=== PATIENT | female | born 1990 | race American Indian/Alaskan Native ===

== ENCOUNTER 2016-09-18 15:29 | Emergency (ER) | payer MEDICAID ==
--- NOTE | 2016-09-18 16:46 | Emergency Department Report ---
Entered by CHOCO BHAKTA, acting as scribe for ELVIRA YU NP. Chief Complaint: OB/Uterine Contractions Stated Complaint: DEHYDRATION Time Seen by Provider: 09/18/16 16:33 - HPI History of Present Illness: 8 weeks pt is non-toxic, non ill appearing, in no acute distress with c/o n/v and unable to hold anything down. Pt states that she has lost about 20lbs since 08/28/16. Reports intermittent abdominal pain. Denies vaginal bleeding Denies chest pain and SOB - ROS Review of Systems: Report N/V and intermittent abdominal pain Denies vaginal bleeding Denies chest pain and SOB - Exam Vital Signs: Vital Signs 09/18/16 16:23 Temperature 98.7 F Pulse Rate 82 Respiratory 18 Rate Blood Pressure 152/97 O2 Sat by Pulse 100 Oximetry Physical Exam: Constitutional: Non toxic appearing, NAD. Abdomen: Abdomen is non-distended, soft with no tenderness to palpation in all quadrants. No abdominal bruit. No epigastric pain. Negative [place] Tenderness. Negative [place] sign. MSE screening note: Focused history and physical exam performed. Due to findings the following was ordered: CBC, BMP, test, UA, and US was ordered on patient. ED Disposition for MSE Condition: Stable This documentation as recorded by the scribe,CHOCO BHAKTA,accurately reflects the service I personally performed and the decisions made by GIGI hernandez MARTIN, NURIS.
[2016-09-18 17:03] LABS: Basophils % (Auto) 0.7 % (0.0-1.8); Eosinophils % (Auto) 0.8 % (0.0-4.3); Hematocrit 44.2 % (30.3-42.9); Hemoglobin 14.3 gm/dl (10.1-14.3); Mean Corpuscular HGB Conc 32 % (30-34); Mean Corpuscular Hemoglobin 27 pg (28-32); Mean Corpuscular Volume 84 fl (79-97); Platelet Count 306 K/mm3 (140-440); Red Blood Count 5.29 M/mm3 (3.65-5.03); Red Cell Distribution Width 15.1 % (13.2-15.2)
[2016-09-18 17:13] LABS: Anion Gap 20 mmol/L; Blood Urea Nitrogen 17 mg/dL (7-17); Calcium 9.9 mg/dL (8.4-10.2); Carbon Dioxide 22 mmol/L (22-30); Chloride 97.2 mmol/L (98-107); Glucose 87 mg/dL (65-100); Potassium 3.6 mmol/L (3.6-5.0); Sodium 136 mmol/L (137-145)
--- NOTE | 2016-09-18 19:44 | Ultrasound Report ---
FINAL REPORT PROCEDURE: US OB TRANSVAGINAL TECHNIQUE: Real-time transvaginal sonography of the uterus, placenta, amniotic fluid, adnexa, and fetus was performed with image documentation. Measurements were obtained to determine age/size. M-mode Doppler was used to document heartbeat. CPT 89868 HISTORY: cramping COMPARISON: Transvaginal OB ultrasound also performed today. FINDINGS: The report for this exam was generated using images from both the transabdominal and a transvaginal OB ultrasound both of which were performed today. There is a single living intrauterine gestation visualized with crown-rump length measurement of 2.5 centimeters corresponding to an age of 9 weeks 2 days. Fetus currently too small to assess anatomy. No gross abnormality is visualized. Yolk sac is visualized. There is nonspecific chorion amniotic separation. No evidence of subchorionic hemorrhage. There is a small nodular density projecting into the endometrial canal from the posterior myometrium measuring approximately 7.7 millimeters x 2.8 centimeters. This may represent a contraction or may also represent a sub mucosal fibroid. Gestational sac is otherwise unremarkable. Uterus is otherwise unremarkable. heart rate of 171 beats per minute is detected. The right ovary measures 4.4 x 2.4 x 3.7 centimeter. Within the right ovary there is a complex cystic nodule measuring 2.7 centimeters greatest diameter with some internal echoes. This may represent hemorrhagic corpus luteum cyst of . Left ovary is unremarkable measuring 2.6 x 1.4 x 3.1 centimeters. IMPRESSION: Single living intrauterine gestation visualized. By crown-rump length measurement estimated age is 9 weeks 2 days[address] the EDC at 04/21/2017 plus or minus 0.5 weeks. There is nonspecific chorion amniotic separation. No evidence of subchorionic hemorrhage. Graph small nodular density projects into the endometrial canal as described. This may represent a submucosal fibroid versus a persistent small contraction. Gestational sac is otherwise unremarkable. Small complex cystic lesion right adnexa suggesting hemorrhagic corpus luteum cyst of .
--- NOTE | 2016-09-18 19:46 | Ultrasound Report ---
FINAL REPORT PROCEDURE: US OB \T\lt; = 14 WEEKS FETUS TECHNIQUE: Real-time transabdominal sonography of the uterus, placenta, amniotic fluid, adnexa, and fetus was performed with image documentation. Measurements were obtained to determine age/size. M-mode Doppler was used to document heartbeat. CPT 52522 HISTORY: cramping COMPARISON: Transvaginal OB ultrasound also performed today. FINDINGS: The report for this exam was generated using images from both the transabdominal and a transvaginal OB ultrasound both of which were performed today. There is a single living intrauterine gestation visualized with crown-rump length measurement of 2.5 centimeters corresponding to an age of 9 weeks 2 days. Fetus currently too small to assess anatomy. No gross abnormality is visualized. Yolk sac is visualized. There is nonspecific chorion amniotic separation. No evidence of subchorionic hemorrhage. There is a small nodular density projecting into the endometrial canal from the posterior myometrium measuring approximately 7.7 millimeters x 2.8 centimeters. This may represent a contraction or may also represent a sub mucosal fibroid. Gestational sac is otherwise unremarkable. Uterus is otherwise unremarkable. heart rate of 171 beats per minute is detected. The right ovary measures 4.4 x 2.4 x 3.7 centimeter. Within the right ovary there is a complex cystic nodule measuring 2.7 centimeters greatest diameter with some internal echoes. This may represent hemorrhagic corpus luteum cyst of . Left ovary is unremarkable measuring 2.6 x 1.4 x 3.1 centimeters. IMPRESSION: IMPRESSION: Single living intrauterine gestation visualized. By crown-rump length measurement estimated age is 9 weeks 2 days. This [address] the EDC at 04/21/2017 plus or minus 0.5 weeks. Consider follow-up Ob ultrasound at 18-20 weeks to evaluate anatomy. There is nonspecific chorion amniotic separation. No evidence of subchorionic hemorrhage. Small nodular density projects into the endometrial canal as described. This may represent a submucosal fibroid versus a persistent small contraction. Gestational sac is otherwise unremarkable. Small complex cystic lesion right adnexa suggesting hemorrhagic corpus luteum cyst of . IMPRESSION:
[2016-09-19] MEDS ORDERED: ZOFRAN IV ONE (02:37)
[2016-09-19] MEDS ORDERED: D5NS 1,000 ML IV SCH ×2 (03:00)
[2016-09-19 03:59] LABS: Bilirubin,Urine NEG (Negative); Blood,Urine NEG (Negative); Ketones,Urine 80 mg/dL (Negative); Leukocyte Esterase,Urine SM (Negative); Mucus,Urine 3+ /HPF; Nitrite,Urine NEG (Negative); Urobilinogen,Urine < 2.0 mg/dL (<2.0)
--- NOTE | 2016-09-19 05:09 | Emergency Department Report ---
ED HPI - General Chief complaint: OB/Uterine Contractions Stated complaint: DEHYDRATION Time Seen by Provider: 09/19/16 02:36 Source: patient Mode of arrival: Ambulatory Limitations: No Limitations - History of Present Illness Initial comments: 26-year-old female approximately 8 weeks presents to the hospital complaining of persistent nausea, vomiting, and by mouth intolerance or in her . She states she lost 20 pounds since August 28 and has not eaten in 3 days. Patient did have some mild intermittent suprapubic cramping after arrival to the ED but denies vaginal bleeding, dysuria, fever, or diarrhea. Patient has received care with [facility]. This is her third and she has 2 living children. She has not experienced this level of hyperemesis in the past.. - Related Data Previous Rx's Medication Instructions Recorded Last Taken Type Ondansetron [Zofran Odt] 4 mg PO Q8HR PRN #20 tab.rapdis 09/19/16 Unknown Rx Allergies Allergy/AdvReac Type Severity Reaction Status Date / Time banana [Banana] AdvReac Hives Verified 09/19/16 03:55 celery [Celery] AdvReac Hives Verified 09/19/16 03:55 cocoa [[place]] AdvReac Hives Verified 09/19/16 03:55 egg yolk [Egg Yolk] AdvReac Hives Verified 09/19/16 03:55 milk AdvReac Hives Verified 09/19/16 03:55 peanut AdvReac Hives Verified 09/19/16 03:55 shellfish derived AdvReac Hives Verified 09/19/16 03:55 strawberry [[place]] AdvReac Hives Verified 09/19/16 03:55 tomato [Tomato] AdvReac Hives Verified 09/19/16 03:55 MELON AdvReac Hives Uncoded 02/27/13 03:42 OATS AdvReac Hives Uncoded 02/27/13 03:42 ORANGES AdvReac Hives Uncoded 02/27/13 03:42 PECANS AdvReac Hives Uncoded 02/27/13 03:42 ED Review of Systems ROS: Stated complaint: DEHYDRATION Other details as noted in HPI Comment: All other systems reviewed and negative Other: Constitutional: No fevers chills Eyes: No eye pain visual changes ENT: No ear pain or throat pain Neck: Denies pain Respiratory: Denies cough wheezing shortness of breath Cardiovascular: Denies chest pain, palpitations, syncope GI: As per HPI : Denies dysuria Musculoskeletal: Denies back pain, joint swelling Skin: Denies rash, lesions, erythema Neurologic: Denies headache, numbness, weakness Psychiatric: Denies suicidal ideation, hallucinations ED Past Medical Hx - Past Medical History Previous Medical History?: No Hx Hypertension: No Hx Diabetes: No Hx Deep Vein Thrombosis: No Hx Renal Disease: No Hx Sickle Cell Disease: No Hx Seizures: No Hx Asthma: No Hx HIV: No - Surgical History Past Surgical History?: No - Social History Smoking Status: Never Smoker Substance Use Type: None - Medications Home Medications: Home Medications Medication Instructions Recorded Confirmed Last Taken Type Ondansetron [Zofran Odt] 4 mg PO Q8HR PRN #20 tab.rapdis 09/19/16 Unknown Rx ED Physical Exam - General Limitations: No Limitations - Other Other exam information: General: No limitations, patient is alert in no acute distress Head exam: Atraumatic, normocephalic Eyes exam: Normal appearance ENT: I mucous membrane Neck exam: Normal inspection, full range of motion, no meningismus nontender Respiratory exam: Clear to auscultation bilateral, no wheezes, rales, crackles Cardiovascular: Normal rate and rhythm, normal heart sounds Abdomen: Soft, nondistended, nontender abdomen, with normal bowel sounds, no rebound, or guarding Extremity: Full range of motion normal inspection no deformity Back: Normal Inspection, full range of motion, no tenderness Neurologic: Alert, oriented x3, cranial nerves intact, no motor or sensory deficit Psychiatric: normal affect, normal mood Skin: Warm, dry, intact ED Course Vital Signs 09/18/16 09/19/16 09/19/16 16:23 00:07 03:00 Temperature 98.7 F 99.1 F Pulse Rate 82 75 Respiratory 18 18 Rate Blood Pressure 152/97 128/89 Blood Pressure [Left] O2 Sat by Pulse 100 100 100 Oximetry 09/19/16 09/19/16 09/19/16 03:46 03:58 04:00 Temperature 98.7 F Pulse Rate 82 Respiratory 19 18 Rate Blood Pressure 101/49 Blood Pressure 129/89 [Left] O2 Sat by Pulse 100 100 Oximetry 09/19/16 09/19/16 05:00 06:00 Temperature Pulse Rate Respiratory Rate Blood Pressure 88/50 98/62 Blood Pressure [Left] O2 Sat by Pulse 100 100 Oximetry - Reevaluation(s) Reevaluation #1: 09/19/16 05:09 -Received Zofran. 2 L of D5 NS in progress. Patient feeling better. By mouth challenge ordered ED Medical Decision Making - Lab Data Result diagrams: 09/18/16 16:42 09/18/16 16:42 Lab Results 09/18/16 09/18/16 09/18/16 Range/Units 16:42 16:42 16:42 WBC 6.0 (4.5-11.0) K/mm3 RBC 5.29 H (3.65-5.03) M/mm3 Hgb 14.3 (10.1-14.3) gm/dl Hct 44.2 H (30.3-42.9) % MCV 84 (79-97) fl MCH 27 L (28-32) pg MCHC 32 (30-34) % RDW 15.1 (13.2-15.2) % Plt Count 306 (140-440) K/mm3 Lymph % (Auto) 25.8 (13.4-35.0) % [place] % (Auto) 7.9 H (0.0-7.3) % Eos % (Auto) 0.8 (0.0-4.3) % Baso % (Auto) 0.7 (0.0-1.8) % Lymph # 1.5 (1.2-5.4) K/mm3 [place] # 0.5 (0.0-0.8) K/mm3 Eos # 0.0 (0.0-0.4) K/mm3 Baso # 0.0 (0.0-0.1) K/mm3 Seg Neutrophils % 64.8 (40.0-70.0) % Seg Neutrophils # 3.9 (1.8-7.7) K/mm3 Sodium 136 L (137-145) mmol/L Potassium 3.6 (3.6-5.0) mmol/L Chloride 97.2 L (98-107) mmol/L Carbon Dioxide 22 (22-30) mmol/L Anion Gap 20 mmol/L BUN 17 (7-17) mg/dL Creatinine 0.5 L (0.7-1.2) mg/dL Estimated GFR > 60 ml/min BUN/Creatinine Ratio 34.00 % Glucose 87 (65-100) mg/dL Calcium 9.9 (8.4-10.2) mg/dL HCG, Quant [id number] H (0-4) mIU/mL Urine Color (Yellow) Urine Turbidity (Clear) Urine pH (5.0-7.0) Ur Specific [place] (1.003-1.030) Urine Protein (Negative) mg/dL Urine Glucose (UA) (Negative) mg/dL Urine Ketones (Negative) mg/dL Urine Blood (Negative) Urine Nitrite (Negative) Urine Bilirubin (Negative) Urine Urobilinogen (<2.0) mg/dL Ur Leukocyte Esterase (Negative) Urine WBC (Auto) (0.0-6.0) /HPF Urine RBC (Auto) (0.0-6.0) /HPF U Epithel Cells (Auto) (0-13.0) /HPF Urine Mucus /HPF // Range/Units 03:45 WBC (4.5-11.0) K/mm3 RBC (3.65-5.03) M/mm3 Hgb (10.1-14.3) gm/dl Hct (30.3-42.9) % MCV (79-97) fl MCH (28-32) pg MCHC (30-34) % RDW (13.2-15.2) % Plt Count (140-440) K/mm3 Lymph % (Auto) (13.4-35.0) % [place] % (Auto) (0.0-7.3) % Eos % (Auto) (0.0-4.3) % Baso % (Auto) (0.0-1.8) % Lymph # (1.2-5.4) K/mm3 [place] # (0.0-0.8) K/mm3 Eos # (0.0-0.4) K/mm3 Baso # (0.0-0.1) K/mm3 Seg Neutrophils % (40.0-70.0) % Seg Neutrophils # (1.8-7.7) K/mm3 Sodium (137-145) mmol/L Potassium (3.6-5.0) mmol/L Chloride (98-107) mmol/L Carbon Dioxide (22-30) mmol/L Anion Gap mmol/L BUN (7-17) mg/dL Creatinine (0.7-1.2) mg/dL Estimated GFR ml/min BUN/Creatinine Ratio % Glucose (65-100) mg/dL Calcium (8.4-10.2) mg/dL HCG, Quant (0-4) mIU/mL Urine Color Yellow (Yellow) Urine Turbidity Clear (Clear) Urine pH 6.0 (5.0-7.0) Ur Specific [place] 1.030 (1.003-1.030) Urine Protein 30 mg/dl (Negative) mg/dL Urine Glucose (UA) 50 (Negative) mg/dL Urine Ketones 80 (Negative) mg/dL Urine Blood Neg (Negative) Urine Nitrite Neg (Negative) Urine Bilirubin Neg (Negative) Urine Urobilinogen < 2.0 (<2.0) mg/dL Ur Leukocyte Esterase Sm (Negative) Urine WBC (Auto) 4.0 (0.0-6.0) /HPF Urine RBC (Auto) 4.0 (0.0-6.0) /HPF U Epithel Cells (Auto) 2.0 (0-13.0) /HPF Urine Mucus 3+ /HPF - Radiology Data Radiology results: report reviewed Transvaginal/pelvic ultrasound: 9 week in 2 days IUP. heart 171. Nonspecific chorionic amniotic separation. Small complex cystic lesion right adnexa suggested hemorrhagic corpus emesis of - Medical Decision Making Symptoms improving ED treatment. Patient is sent home with medication to help with nausea and encourage by mouth intake. Outpatient follow-up with [facility]LE[facility] CL[facility] will be encouraged - Differential Diagnosis dehydration, UTI, electrolyte abnormalities, hyperemesis Critical Care Time: No Critical care attestation.: If time is entered above; I have spent that time in minutes in the direct care of this critically ill patient, excluding procedure time. ED Disposition Clinical Impression: Hyperemesis, 9 weeks gestation of Disposition: DC-01 TO HOME OR SELFCARE Is pt being admited?: No Does the pt Need Aspirin: No Condition: Stable Instructions: Hyperemesis Gravidarum (ED) Additional Instructions: Take the medications for nausea vomiting. Follow up closely with COLLECTION CLERK doctor. Return if symptoms worsen. Prescriptions: Ondansetron [Zofran Odt] 4 mg PO Q8HR PRN #20 tab.rapdis PRN Reason: Nausea And Vomiting Referrals: [facility] [Provider Group] - 2-3 Days Time of Disposition: 06:50
[2016-09-19 07:24] VITALS: BP 105/70
== END 2016-09-19 07:18 | disposition home or self-care (01) ==
LOC: ED 15:29
DX: O21.0 Mild hyperemesis gravidarum (principal); Z3A.09 9 weeks gestation of pregnancy; Z91.013 Allergy to seafood; Z91.010 Allergy to peanuts; Z91.048 Other nonmedicinal substance allergy status; Z91.018 Allergy to other foods; Z88.8 Allergy status to other drugs, medicaments and biological substances
CPT/HCPCS: 36415; 76801; 76817; 80048; 81001; 84702; 85025; 96361; 96374; 99284; J2405; J7042

== ENCOUNTER 2017-04-01 23:44 | Outpatient (CLI) | payer MEDICAID ==
[2017-04-02] MEDS ORDERED: LACTATED RINGERS 1,000 ML IV ONE (00:12)
[2017-04-02 01:05] LABS: Bilirubin,Urine NEG (Negative); Blood,Urine NEG (Negative); Color,Urine Yellow (Yellow); Mucus,Urine FEW /HPF; Nitrite,Urine NEG (Negative)
[2017-04-02 01:17] VITALS: BP 122/64
== END 2017-04-02 01:28 | disposition home or self-care (01) ==
LOC: TRG 23:44
PROVIDERS: ATTEND Obstetrics & Gynecology
DX: O47.03 False labor before 37 completed weeks of gestation, third trimester (principal); Z87.891 Personal history of nicotine dependence; Z3A.36 36 weeks gestation of pregnancy
CPT/HCPCS: 59025; 81001

== ENCOUNTER 2019-02-26 16:24 | Outpatient (CLI) | payer MEDICAID ==
[2019-02-26] MEDS ORDERED: D5W/LACTATED RINGERS 1,000 ML IV SCH (17:00)
[2019-02-26 17:26] LABS: Bilirubin,Urine NEG (Negative); Blood,Urine NEG (Negative); Color,Urine Amber (Yellow); Mucus,Urine FEW /HPF; Urobilinogen,Urine < 2.0 mg/dL (<2.0)
[2019-02-26 18:38] VITALS: BP 141/66
== END 2019-02-26 18:50 | disposition home or self-care (01) ==
LOC: TRG 16:24
PROVIDERS: ATTEND Obstetrics & Gynecology
DX: O99.282 Endocrine, nutritional and metabolic diseases complicating pregnancy, second trimester (principal); E86.0 Dehydration; O47.02 False labor before 37 completed weeks of gestation, second trimester; Z3A.27 27 weeks gestation of pregnancy
CPT/HCPCS: 81001; 96360; 96361; J7121

== ENCOUNTER 2019-05-19 18:31 | Inpatient (IN) | payer MEDICAID ==
[2019-05-19] MEDS ORDERED: BUTORPHANOL 2 MG/1 ML INJ IV PRN (19:09)
[2019-05-19] MEDS ORDERED: LIDOCAINE (2%) 20 MG/1 ML VIAL 20 ML MDV INFILTRATI ONE (19:09)
[2019-05-19] MEDS ORDERED: TERBUTALINE 1 MG/1 ML INJ SUB-Q PRN (19:09)
[2019-05-19] MEDS ORDERED: MINERAL OIL 30 ML ORAL LIQD PO PRN (19:09)
[2019-05-19] MEDS ORDERED: ePHEDrine SULFATE 50 MG/1 ML INJ IV PRN (19:09)
[2019-05-19] MEDS ORDERED: TERBUTALINE 1 MG/1 ML INJ IVP PRN (19:09)
[2019-05-19] MEDS ORDERED: NALOXONE 0.4 MG/1 ML INJ IV PRN (19:09)
[2019-05-19] MEDS: ONDANSETRON 4 MG/2 ML INJ IV PRN (19:56)
[2019-05-19] MEDS: LACTATED RINGERS 1,000 ML IV SCH (19:56)
[2019-05-19] MEDS ORDERED: OXYTOCIN 20 UNIT/1000ML DRIP 20 UNITS/1,000 ML BAG IV SCH (20:00)
[2019-05-19] MEDS ORDERED: PANTOPRAZOLE 40 MG INJ IV SCH (20:00)
[2019-05-19] MEDS ORDERED: OXYTOCIN DRIP 30 UNITS/500 ML BAG IV SCH (20:00)
[2019-05-19] MEDS ORDERED: AMPICILLIN/NS 2 GM/100 ML 2 GM/100 ML BAG IV ONE (20:00)
[2019-05-19 20:27] LABS: Hematocrit 38.7 % (30.3-42.9); Hemoglobin 12.6 gm/dl (10.1-14.3); Mean Corpuscular HGB Conc 33 % (30-34); Mean Corpuscular Volume 87 fl (79-97); Platelet Count 236 K/mm3 (140-440); Red Blood Count 4.45 M/mm3 (3.65-5.03); Red Cell Distribution Width 16.2 % (13.2-15.2)
[2019-05-19 20:48] LABS: Alanine Aminotransferase 10 units/L (7-56); Uric Acid 5.2 mg/dL (3.5-7.6)
[2019-05-19] MEDS ORDERED: AZITHROMYCIN 250 MG TAB PO ONE (21:29)
[2019-05-19 21:35] LABS: Bacteria,Urine 1+ /HPF (Negative); Bilirubin,Urine NEG (Negative); Blood,Urine NEG (Negative); Color,Urine Amber (Yellow); Mucus,Urine 3+ /HPF; Urobilinogen,Urine < 2.0 mg/dL (<2.0)
[2019-05-19] MEDS ORDERED: LIDOCAINE-MPF (1%) 10 MG/1 ML VIAL 5 ML INFILTRATI ONE (22:00)
[2019-05-19] MEDS: AMPICILLIN/NS 1 GM/50 ML 1 GM/50 ML BAG IV SCH (23:55)
[2019-05-20] MEDS ORDERED: OXYTOCIN DRIP 30 UNITS/500 ML BAG IV SCH (01:00)
--- NOTE | 2019-05-20 01:54 | History and Physical Report ---
History of Present Illness Date of examination: 05/20/19 Date of admission: 05/19/19 18:31 Chief complaint: sent from [facility] for induction of labor History of present illness: Pt is a 28 year old -[place]inese female MICHELINE 05/27/19 at 39w0d presents from [facility] clinic for induction secondary to non-reassuring status due to variable decelerations on NST in office per Dr Dotson with [facility]. She reports irregular contractions and denies vaginal bleeding or leakage of fluid. She has had care at [facility] since 12 weeks complicated by AFP positive for trisomy 21 but low risk NIPT, GERD on Lansoprazole with an baggageman following, severe atopic dermatitis s/p baggageman referral and left hydronephrosis and multicystic left kidney being followed by [facility]. She is GBS positive. Past History Past Medical History: GERD, other (atopic dermatitis, multiple food allergies, depression ) Past Surgical History: no surgical history Family/Genetic History: diabetes, heart disease Social history: no significant social history - Obstetrical History Expected Date of Delivery: 05/27/19 Actual Gestation: 39 Week(s) 0 Day(s) : 4 Para: 3 Hx # Term Pregnancies: 3 Number of Pregnancies: 0 Spontaneous Abortions: 0 Induced : 0 Number of Living Children: 3 Medications and Allergies Allergies Allergy/AdvReac Type Severity Reaction Status Date / Time banana [Banana] AdvReac Hives Verified 09/19/16 03:55 celery [Celery] AdvReac Hives Verified 09/19/16 03:55 cocoa [[place]] AdvReac Hives Verified 09/19/16 03:55 egg yolk [Egg Yolk] AdvReac Hives Verified 09/19/16 03:55 milk AdvReac Hives Verified 09/19/16 03:55 peanut AdvReac Hives Verified 09/19/16 03:55 shellfish derived AdvReac Hives Verified 09/19/16 03:55 strawberry [[place]] AdvReac Hives Verified 09/19/16 03:55 tomato [Tomato] AdvReac Hives Verified 09/19/16 03:55 MELON AdvReac Hives Uncoded 02/27/13 03:42 OATS AdvReac Hives Uncoded 02/27/13 03:42 ORANGES AdvReac Hives Uncoded 02/27/13 03:42 PECANS AdvReac Hives Uncoded 02/27/13 03:42 Home Medications Medication Instructions Recorded Confirmed Last Taken Type Cetirizine 10mg chew 1 tab PO DAILY 05/19/19 05/19/19 05/18/19 History Lansoprazole 1 tab PO DAILY 05/19/19 05/19/19 05/18/19 History Ondansetron 1 tab PO Q8H 05/19/19 05/19/19 05/19/19 History Vit-Fe Fumar-FA 1 tab PO DAILY 05/19/19 05/19/19 05/19/19 History Active Meds: Active Medications Butorphanol Tartrate (Stadol) 2 mg IV Q2H PRN PRN Reason: Pain , Severe (7-10) Ephedrine Sulfate (Ephedrine Sulfate) 10 mg IV Q2M PRN PRN Reason: Hypotension Fentanyl (Sublimaze) 100 mcg IV Q2H PRN PRN Reason: Labor Pain Oxytocin/Sodium Chloride (Pitocin/Ns 20 Unit/1000ml Drip) 20 units in 1,000 mls @ 125 mls/hr IV DIRECT NELL Oxytocin/Sodium Chloride (Pitocin/Ns 30 Unit/500ml) 30 units in 500 mls @ 1 mls/hr IV TITR NELL; Protocol Oxytocin/Sodium Chloride (Pitocin/Ns 30 Unit/500ml) 30 units in 500 mls @ 1 mls/hr IV TITR NELL; Protocol Last Titration: 05/20/19 01:40 Dose: 8 mls/hr Documented by: Lactated Ringer's (Lactated Ringers) 1,000 mls @ 125 mls/hr IV DIRECT NELL Last Admin: 05/19/19 19:56 Dose: 125 mls/hr Documented by: Ampicillin Sodium (Ampicillin/Ns 1 Gm/50 Ml) 1 gm in 50 mls @ 100 mls/hr IV Q4HR NELL; Protocol Last Admin: 05/19/19 23:55 Dose: 100 mls/hr Documented by: Mineral Oil (Mineral Oil) 30 ml PO QHS PRN PRN Reason: Constipation Naloxone HCl (Naloxone) 0.1 mg IV Q2MIN PRN PRN Reason: Res Rate </= 8 or 02 SAT < 92% Ondansetron HCl (Zofran) 4 mg IV Q8H PRN PRN Reason: Nausea And Vomiting Last Admin: 05/19/19 19:56 Dose: 4 mg Documented by: Pantoprazole Sodium (Protonix) 40 mg IV QDAY NELL Terbutaline Sulfate (Brethine) 0.25 mg SUB-Q ONCE PRN PRN Reason: Hyperstimulation/Hypertonicity Terbutaline Sulfate (Brethine) 0.25 mg IVP ONCE PRN PRN Reason: Hyperstimulation/Hypertonicity Review of Systems All systems: negative - Vital Signs Vital signs: Vital Signs Pulse Pulse Ox 96 H 100 05/19/19 19:03 05/19/19 19:03 Temp Pulse Resp BP Pulse Ox 98.6 F 85 18 130/84 98 05/19/19 19:10 05/20/19 01:02 05/19/19 19:10 05/20/19 00:52 05/20/19 01:02 - Physical Exam Breasts: Positive: deferred Cardiovascular: Regular rate Lungs: Positive: Clear to auscultation Abdomen: Positive: soft (gravid ) Genitourinary (Female): Positive: normal external genitalia Uterus: Positive: enlarged (gravid ) Extremities: Positive: normal - Obstetrical FHR: auscultation normal Cervical Dilatation: 4 Cervical Effacement Percentage: 50 station: -4 Uterine Contraction Pattern: Irregular Uterine Tone Measurement Phase: Resting Uterine Contraction Intensity: Moderate Results Result Diagrams: 05/19/19 19:09 05/19/19 19:13 Abnormal lab results 05/19/19 05/19/19 05/19/19 Range/Units 19:09 19:13 20:00 RDW 16.2 H (13.2-15.2) % Creatinine 0.6 L (0.7-1.2) mg/dL Lactate Dehydrogenase 197 H (91-180) units/L Urine WBC (Auto) 8.0 H (0.0-6.0) /HPF All other labs normal. Assessment and Plan A: IUP at 39w0d undergoing induction of labor per MFM secondary to non reassuring status Left hydronephrosis and polycystic kidney; NICU aware of pt AFP positive for trisomy 21 but low risk NIPT GERD on Lansoprazole with an baggageman following Severe atopic dermatitis s/p baggageman referral GBS positive P: Admit to labor and delivery Routine intrapartum care PIH panel secondary to elevated blood pressure on admission Closely monitor maternal and status
[2019-05-20] MEDS: ONDANSETRON 4 MG/2 ML INJ IV PRN (03:02)
[2019-05-20] MEDS: fentaNYL 100 MCG/2 ML INJ IV PRN ×2 (03:06→05:01)
[2019-05-20] MEDS: AMPICILLIN/NS 1 GM/50 ML 1 GM/50 ML BAG IV SCH (03:12)
[2019-05-20] MEDS: LACTATED RINGERS 1,000 ML IV SCH (04:56)
--- NOTE | 2019-05-20 06:27 | Procedure Note ---
OB Delivery Note - Delivery Date of Delivery: 05/20/19 Surgeon: LUCIA WAGGONER Estimated blood loss: 500cc - Vaginal Delivery presentation: vertex Delivery position: OA Intrapartum events: meconium, mult.variable deceleratio, hemorrhage Delivery induction: oxytocin Delivery augmentation: pitocin Delivery monitor: external FHT, external uterine Route of delivery: Delivery placenta: other (See operative report; retained placenta ) Delivery cord: nuchal cord (tight nuchal cord, delivered through per nurse ) Episiotomy: none Delivery laceration: other (Periurethral abrasions noted to be hemostatic without repair) Anesthesia: intravenous Delivery comments: While director of optimization physician en-route, pt rapidly progressed from 7cm to complete dilation to delivery of a viable female attended by RN. Per RN, delivered through tight nuchal cord. Cord clamped and cut and handed to NICU staff in attendance secondary to meconium. Upon entry into the room, surrounded by NICU staff in warmer. After greater than 30 minutes, placenta remained in situ after multiple attempts at removal. Periurethral abrasions noted to be hemostatic. Decision made to proceed to OR for exam under anesthesia, removal of retained placenta and other indicated procedures. EBL 500 mL. - Infant A at 1 minute: 4 at 5 minutes: 7 Gender: Female (3147g @ 0554 am)
[2019-05-20] MEDS ORDERED: DEXMEDETOMIDINE 200 MCG/2 ML VIAL IV ONE (06:34)
[2019-05-20] MEDS ORDERED: propofoL 200 MG/20 ML VIAL IV ONE ×2 (06:34→06:57)
[2019-05-20] MEDS ORDERED: KETAMINE/STERILE WATER 50 MG/ML SYRINGE ONE (06:35)
[2019-05-20] MEDS ORDERED: KETOROLAC 30 MG/1 ML INJ ONE (07:00)
[2019-05-20] MEDS ORDERED: LACTATED RINGERS 2,000 ML ONE (07:30)
[2019-05-20] MEDS ORDERED: miSOPROStol 200 MCG TAB ONE (07:33)
[2019-05-20] MEDS ORDERED: METHYLERGONOVINE MALEATE 0.2 MG/ML VIAL IM ONE (07:40)
[2019-05-20] MEDS ORDERED: miSOPROStol 200 MCG TAB PR ONE (07:41)
--- NOTE | 2019-05-20 08:16 | Ultrasound Report ---
Limited pelvic Ultrasound HISTORY: RETAINED PLACENTA. TECHNIQUE: Grayscale and color imaging performed. COMPARISON: No recent comparison exam is available FINDINGS: Limited ultrasound imaging provided for intraoperative dilatation and curettage for retaine d placenta. Endometrial echocomplex measures up to 4 cm in the sagittal plane over a span of roughly 6 cm and with a nodular area near the uterine fundus. Color imaging was not provided. The final image shows distal endometrial echocomplex measuring 7 mm. Please refer to the operative note for complete details. IMPRESSION: Intraoperative ultrasound guidance as above. Signer Name: Pito Cantu MD Signed: 05/20/2019 8:11 AM Workstation Name: [id number]
--- NOTE | 2019-05-20 08:23 | Anesthesia Consultation ---
Anesthesia Consult and Med Hx Date of service: 05/20/19 - Airway Anesthetic Teeth Evaluation: Poor ROM Head & Neck: Adequate Mental/Hyoid Distance: Adequate Mallampati Class: Class III Intubation Access Assessment: Probably Good - Pulmonary Exam CTA: Yes - Cardiac Exam Cardiac Exam: RRR - Pre-Operative Health Status ASA Pre-Surgery Classification: ASA2 Proposed Anesthetic Plan: MAC - Pulmonary Hx Smoking: No Hx Asthma: No Hx Respiratory Symptoms: No SOB: No COPD: No Home Oxygen Therapy: No Hx Pneumonia: No Hx Sleep Apnea: No - Cardiovascular System Hx Hypertension: No Hx Coronary Artery Disease: No Hx Heart Attack/AMI: No Hx Angina: No Hx Percutaneous Transluminal Coronary Angioplasty (PTCA): No Hx Cardia Arrhythmia: No Hx Pacemaker: No Hx Internal Defibrillator: No Hx Valvular Heart Disease: No Hx Heart Murmur: No Hx Peripheral Vascular Disease: No - Central Nervous System Hx Neuromuscular Disorder: No Hx Seizures: No CVA: No Hx Back Pain: No Hx Psychiatric Problems: Yes (PTSD-2008) - Gastrointestinal Hx Ulcer: No Hx Gastroesophageal Reflux Disease: Yes - Endocrine Hx Renal Disease: No Hx End Stage Renal Disease: No Hx Cirrhosis: No Hx Liver Disease: No Hx Insulin Dependent Diabetes: No Hx Non-Insulin Dependent Diabetes: No Hx Thyroid Disease: No Hx Hypothyroidism: No Hx Hyperthyroidism: No - Hematic Hx Anemia: Yes Hx Sickle Cell Disease: No - Other Systems Hx Alcohol Use: No Hx Substance Use: No Hx Cancer: No Hx Obesity: No
--- NOTE | 2019-05-20 08:24 | Anesthesia Day of Surgery ---
Anesthesia Day of Surgery - Day of Surgery Patient Examined: Yes Patient H&P Reviewed: Yes Patient is NPO: Yes Beta Blockers: No Cardiac Clearance: No Pulmonary Clearance: No Peter's Test: N/A
--- NOTE | 2019-05-20 08:43 | Operative Report ---
Operative Report Operative Report: Date of Procedure: May 20, 2019 Preoperative Diagnosis: 1) s/p 2) Retained Placenta 3) Hemorrhage Postoperative Diagnosis: Same Procedure: Exam under anesthesia, Suction dilation and curettage Surgeon: Tiffany Tejada MD Anesthesia: General Findings: 1) Retained placenta 2) Uterine atony EBL: 2000 mL IVF: 1500 mL Urine output: 100 mL, clear prior to the procedure Specimen: Placental fragments to pathology Medication: Methergine 0.2 mg IM and Misoprostol 800 mcg per rectum Disposition: Stable to PACU Indication for Procedure: Pt is a 28 year old s/p who presents for surgical management of retained placenta. Operation in Detail: After the risks, benefits, alternatives and complications were explained to the patient, she gave informed consent for the procedure. She was subsequently taken to the operating room with her IV noted to be running well. She was then placed in the dorsal supine position with her SCDs noted to be in place and functioning. General anesthesia was then inducted without difficulty. The patient was then placed in the dorsal lithotomy position and prepped and draped in a normal sterile fashion. A time out was performed. A rubber catheter was used to empty the bladder. A weighted speculum was placed posteriorly in the vagina and a Shakira retractor was placed anteriorly in the vagina for adequate visualization of the cervix. The anterior lip of the cervix was grasped with a ring forceps. A gloved hand was placed in the uterus in atte mpt to remove the placenta with minimal success. Under ultrasound guidance, a combination of suction curettage with a rigid size 14 cannula and sharp curettage with a banjo curette were used to remove all visible placental fragments from the uterus. A thin endometrial stripe was noted. Once the procedure was completed, the uterus was noted to be atonic. In addition to pitocin in her IV fluids, the patient received Methergine 0.2 mg IM and Misoprostol 800 mcg per rectum to ensure uterine contraction. Fundus noted to be firm. All instruments were removed from the vagina atraumatically. A porter catheter was placed to minimize a full bladder contributing to uterine atony. At this time the procedure was ended. The patient was placed in dorsal lithomy position and extubated without difficulty. She was taken to the PACU in stable condition. All instrument and lap counts were correct x 2. The patient's hemoglobin and hematocrit will be drawn two hours postoperatively.
[2019-05-20 10:52] LABS: Hemoglobin 8.8 gm/dl (10.1-14.3)
[2019-05-20 10:53] LABS: Hematocrit 27.2 % (30.3-42.9)
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
[2019-05-20] MEDS: oxyCODONE /ACETAMINOPHEN 5-325MG TAB PO PRN (12:45)
[2019-05-20] MEDS ORDERED: SODIUM CHLORIDE 0.9% 500 ML 500 ML IV ONE (17:49)
[2019-05-20] MEDS ORDERED: PROMETHAZINE 25 MG RECT SUPP PR PRN (17:58)
[2019-05-20] MEDS ORDERED: ONDANSETRON 4 MG/2 ML INJ IV PRN (17:58)
[2019-05-20] MEDS ORDERED: PROMETHAZINE 25 MG TAB PO PRN (17:58)
[2019-05-20] MEDS ORDERED: LANOLIN/ZINC/DIMETHICONE (LANSINOH) 7 GM TP PRN ×2 (17:58)
[2019-05-20] MEDS ORDERED: MAGNESIUM HYDROXIDE (MOM) ORAL LIQD UDC PO PRN (17:58)
[2019-05-20] MEDS ORDERED: WITCH HAZEL/ GLYCERIN PAD TP PRN (17:58)
[2019-05-20] MEDS ORDERED: OXYTOCIN 20 UNIT/1000ML DRIP 20 UNITS/1,000 ML BAG IV SCH (18:00)
[2019-05-20] MEDS ORDERED: SODIUM CHLORIDE 0.9% 500 ML 500 ML ONE (18:27)
[2019-05-20] MEDS: IBUPROFEN 600 MG TAB PO SCH (18:57)
[2019-05-20 19:42] LABS: Hematocrit 20.6 % (30.3-42.9); Hemoglobin 6.8 gm/dl (10.1-14.3)
[2019-05-20] MEDS: FERROUS SULFATE 325 MG TAB PO SCH (22:17)
[2019-05-20] MEDS: traZODone 50 MG TAB PO SCH (22:18)
[2019-05-20] MEDS: busPIRone 5 MG TAB PO SCH (22:18)
[2019-05-20] MEDS: QUEtiapine 25 MG TAB PO SCH (22:19)
[2019-05-21] MEDS: IBUPROFEN 600 MG TAB PO SCH ×4 (05:33→18:44)
[2019-05-21] MEDS ORDERED: TETANUS,DIPH,PERTUSS(ACELL) VACCINE 0.5 ML SYRINGE IM ONE (06:00)
--- NOTE | 2019-05-21 08:00 | Progress Note ---
Assessment and Plan A: PPD1 s/p and hemorrhage Vital signs stable Severe acute anemia due to blood loss Psychiatric disorder P: Pt will attempt to walk again today. If she feels dizzy, she will request blood transfusion. Appreciate continued psychiatry consult Continue to monitor. Consider discharge to home on PPD2 or 3 Subjective - Subjective Date of service: 05/21/19 Principal diagnosis: s/p Interval history: PPD1 s/p complicated by retained placenta, hemorrhage 2000mL. S/p psychiatry consult and initiation of Quetiapine, Buspar, Effexor, and Trazadone. She states that yesterday she felt like she was going to "fall on the baby." She is feeling tired this morning, denies ringing in ears or faintness. 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 [facility]) Objective - Vital Signs Latest vital signs: Vital Signs Temp Pulse Resp BP BP Pulse Ox 05/21/19 05:19 97.5 F L 76 18 124/84 100 05/20/19 22:11 98.4 F 93 H 18 119/63 100 05/20/19 15:55 98.4 F 75 20 127/74 100 05/20/19 12:24 98.3 F 83 16 118/81 100 05/20/19 11:28 85 116/91 05/20/19 11:27 77 100 05/20/19 11:22 75 100 05/20/19 11:17 96 H 99 05/20/19 11:13 88 123/89 05/20/19 11:12 82 100 05/20/19 11:07 83 100 05/20/19 11:02 80 100 05/20/19 10:58 67 114/79 05/20/19 10:57 80 100 05/20/19 10:52 75 100 05/20/19 10:47 83 100 05/20/19 10:43 72 112/77 05/20/19 10:42 73 100 05/20/19 10:37 75 100 05/20/19 10:32 72 100 05/20/19 10:28 74 110/76 05/20/19 10:27 73 100 05/20/19 10:22 68 100 05/20/19 10:17 72 100 05/20/19 10:13 85 97/56 05/20/19 10:12 80 100 05/20/19 10:07 76 100 05/20/19 10:02 76 100 05/20/19 10:00 54 L 91 05/20/19 09:58 72 115/53 05/20/19 09:57 73 100 05/20/19 09:52 81 100 05/20/19 09:47 94 H 100 05/20/19 09:43 68 103/63 05/20/19 09:42 79 100 05/20/19 08:55 68 18 98/53 98 05/20/19 08:40 74 13 92/59 97 05/20/19 08:35 83 14 100/60 98 05/20/19 08:20 70 16 104/58 100 05/20/19 08:10 74 15 107/61 100 05/20/19 08:05 78 18 108/64 100 05/20/19 08:02 97. F L 79 18 105/63 100 Intake and Output 05/20/19 05/20/19 05/21/19 15:59 23:59 07:59 Intake Total 1240 580 240 Output Total 150 250 Balance 1090 330 240 Intake: IV 1000 Oral 240 220 240 Intake, Free Water 360 Output: Urine 150 250 Void 250 Other: Total, Intake Amount 240 220 240 Total, Output Amount 150 # Voids Void 1 1 2 - Exam Narrative Exam: Pt appears energetic and alert/oriented. Lungs: Present: Normal air movement Abdomen: Present: soft. Absent: tenderness Uterus: Present: firm, fundal height at umbilicus. Absent: bogginess Extremities: Present: normal - Labs Labs: Abnormal lab results 05/19/19 05/20/19 05/20/19 Range/Units 19:55 10:18 19:30 Hgb 8.8 L D 6.8 L (10.1-14.3) gm/dl Hct 27.2 L D 20.6 L D (30.3-42.9) % Crossmatch See Detail
[2019-05-21 09:36] LABS: Hematocrit 22.1 % (30.3-42.9); Hemoglobin 7.2 gm/dl (10.1-14.3); Mean Corpuscular HGB Conc 33 % (30-34); Mean Corpuscular Volume 87 fl (79-97); Platelet Count 171 K/mm3 (140-440); Red Blood Count 2.54 M/mm3 (3.65-5.03); Red Cell Distribution Width 16.1 % (13.2-15.2)
[2019-05-21] MEDS: ACETAMINOPHEN 325 MG TAB PO PRN ×2 (09:48→15:04)
[2019-05-21] MEDS: diphenhydrAMINE 25 MG CAP PO PRN ×2 (09:49→15:04)
[2019-05-21] MEDS: busPIRone 5 MG TAB PO SCH ×2 (09:50→22:16)
[2019-05-21] MEDS: FERROUS SULFATE 325 MG TAB PO SCH ×2 (09:50→22:15)
[2019-05-21] MEDS: VENLAFAXINE 25 MG TAB PO SCH (09:50)
[2019-05-21] MEDS: QUEtiapine 25 MG TAB PO SCH ×2 (09:51→22:16)
--- NOTE | 2019-05-21 12:47 | Progress Note ---
Subjective - Reason for Consult Consult date: 05/21/19 Reason for consult: psychiatric assessment - Chief Complaint Chief complaint: During my interview with the patient this morning, the patient was sitting on the side of the bed alert oriented x4, able to make needs known dressed appropriately for the occasion and maintain eye contact. The patient denies suicidal or homicidal ideation. She denies any visual or auditory hallucination. The patient reports that she still has intermittent depressive symptoms but stated, "I started taking the medication you prescribed yesterday and I am doing so much better, my anxiety level is way down". The patient reported that she slept well last night and her appetite is good. ROS: Constitutional: Negative for weight loss ENT: Negative for stridor Respiratory: Negative for cough or hemoptysis All other systems reviewed and are negative MENTAL STATUS General Appearance and Behavior: age appropriate, good eye contact, cooperative with questioning and polite Cooperation: Cooperative Psychomotor Behavior: within normal limits Mood: OK Affect and affective range: Congruent with stated mood Thought Process: Fluent/Logical and Goal-directed Thought Content: Within reality Speech: Normal volume and Regular rate and rhythm Intellectual Functioning Average Suicidal Ideation: Denies SI Homicidal Ideation: Denies HI Impulse Control: intact Insight and Judgment: normal insight and judgment Memory: Normal Attention: Normal Orientation: alert and oriented RECOMMENDATIONS MEDICATIONS: continue psychiatric medication on chart Risks, benefits and alternatives of medications discussed with the patient, qu estions answered and consent obtained from patient. PSYCHOTHERAPY: Supportive psychotherapy provided MEDICAL: Per primary team DELIRIUM PRECAUTIONS: Please re-orient patient frequently, keep lights on during the day, and minimize benzodiazepines and opiates as these medications could worsen patient's confusion. 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
[2019-05-21 12:54] LABS: Hematocrit 21.4 % (30.3-42.9); Hemoglobin 7.2 gm/dl (10.1-14.3)
[2019-05-21] MEDS ORDERED: MEASLES, MUMPS & RUBELLA 12,500 UNIT/0.5 ML VACCINE SUB-Q ONE (17:52)
[2019-05-21] MEDS: oxyCODONE /ACETAMINOPHEN 5-325MG TAB PO PRN (22:16)
[2019-05-21] MEDS: traZODone 50 MG TAB PO SCH (22:16)
[2019-05-22] MEDS: IBUPROFEN 600 MG TAB PO SCH ×2 (00:10→05:39)
[2019-05-22 06:30] LABS: Hematocrit 24.5 % (30.3-42.9); Hemoglobin 8.2 gm/dl (10.1-14.3)
--- NOTE | 2019-05-22 08:28 | Progress Note ---
Assessment and Plan A: PPD2 s/p and hemorrhage Vital signs stable Severe acute anemia due to blood loss, s/p 2U PRBC Psychiatric disorder P: Routine pp care Appreciate continued psychiatry consult Discharge to home this afternoon Subjective - Subjective Date of service: 05/22/19 Principal diagnosis: s/p Interval history: PPD2 s/p complicated by hemorrhage, received 2U PRBC yesterday. She states she feels tired, and is worried about transportation after discharge to visit her baby. Patient reports: appetite normal, voiding normally, pain well controlled, ambulating normally : in NICU Objective - Vital Signs Latest vital signs: Vital Signs Temp Pulse Resp BP BP Pulse Ox 05/22/19 00:35 98.2 F 68 18 113/76 97 05/22/19 00:16 97.9 F 75 18 107/61 98 05/21/19 23:46 97.9 F 82 18 109/61 98 05/21/19 23:16 97.6 F 79 18 127/61 97 05/21/19 22:46 98.0 F 97 H 18 122/68 98 05/21/19 22:31 97.9 F 78 18 112/68 100 05/21/19 22:15 75 18 125/75 100 05/21/19 16:18 98.1 F 83 16 131/87 100 05/21/19 15:48 98.2 F 78 16 125/78 100 05/21/19 15:18 98.0 F 76 16 128/76 99 05/21/19 14:48 98.0 F 68 18 114/62 100 05/21/19 14:33 98 F 96 H 18 128/79 05/21/19 12:17 97.6 F 77 16 139/87 100 05/21/19 08:32 97.6 F 73 18 123/97 100 Intake and Output 05/21/19 05/22/19 05/22/19 23:59 07:59 15:59 Intake Total 490 490 Balance 490 490 Intake: Oral 240 240 Blood Product 250 250 Leukoreduced Red Blood 0 250 Cells Unit [id number] Leukoreduced Red Blood 250 Cells Unit [id number] Other: Total, Intake Amount 240 240 # Voids Void 1 1 - Exam Breasts: Present: other (lactating) Abdomen: Present: soft Uterus: Present: firm, fundal height below umbilicus. Absent: bogginess Extremities: Present: normal - Labs Labs: Abnormal lab results 05/19/19 05/21/19 05/21/19 Range/Units 19:55 08:10 12:43 WBC 11.2 H (4.5-11.0) K/mm3 RBC 2.54 L (3.65-5.03) M/mm3 Hgb 7.2 L 7.2 L (10.1-14.3) gm/dl Hct 22.1 L 21.4 L (30.3-42.9) % RDW 16.1 H (13.2-15.2) % Crossmatch See Detail 05/22/19 Range/Units 05:08 WBC (4.5-11.0) K/mm3 RBC (3.65-5.03) M/mm3 Hgb 8.2 L (10.1-14.3) gm/dl Hct 24.5 L (30.3-42.9) % RDW (13.2-15.2) % Crossmatch
--- NOTE | 2019-05-22 08:31 | Discharge Summary ---
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 Retained placenta removed with suction D&C. hemorrhage 2L, pt received 2U PRBC. Psychiatric disorder diagnosed, started on several psychiatric medications. Condition at discharge: Good Disposition: DC-01 TO HOME OR SELFCARE Plan - Discharge Medications Prescriptions: Ferrous Sulfate [Ferrous Sulfate 324 MG] 324 mg PO BID #60 tablet. Ibuprofen [Motrin] 600 mg PO Q6H PRN #60 tablet PRN Reason: Pain - Provider Discharge Summary Activity: routine, no sex for 6 weeks, no heavy lifting 4 weeks, no strenuous exercise Diet: routine Instructions: routine Additional instructions: [] Smoking cessation referral if applicable(refer to patient education folder for contact #) [] Refer to [facility]'s [facility] Booklet Call your doctor immediately for: * Fever > 100.5 * Heavy vaginal bleeding ( >1 pad per hour) * Severe persistent headache * Shortness of breath * Reddened, hot, painful area to leg or breast * Drainage or odor from incision. * Keep incision clean and dry at all times and follow doctor's instructions regarding bathing/showering - Follow up plan Follow up: GARY ALTAMIRANO MD [Primary Care Provider] - 14 Days (Please call [place] [facility] loan interviewer to schedule appointment.)
[2019-05-22] MEDS: QUEtiapine 25 MG TAB PO SCH ×2 (08:54→08:58)
[2019-05-22] MEDS: FERROUS SULFATE 325 MG TAB PO SCH (08:55)
[2019-05-22] MEDS: VENLAFAXINE 25 MG TAB PO SCH (08:55)
[2019-05-22] MEDS: busPIRone 5 MG TAB PO SCH (08:56)
[2019-05-22 09:16] VITALS: BP 141/79
== END 2019-05-22 15:20 | disposition home or self-care (01) | DRG 767 ==
LOC: LD 18:31 → OB 05-20 12:07
PROVIDERS: ADMIT Obstetrics & Gynecology; ATTEND Obstetrics & Gynecology
PROC: 10E0XZZ Delivery of Products of Conception, External Approach (ICD-10-PCS; principal; 2019-05-20)
PROC: 10D17ZZ Extraction of Products of Conception, Retained, Via Natural or Artificial Opening (ICD-10-PCS; 2019-05-20)
PROC: 3E0134Z Introduction of Serum, Toxoid and Vaccine into Subcutaneous Tissue, Percutaneous Approach (ICD-10-PCS; 2019-05-21)
PROC: 3E0234Z Introduction of Serum, Toxoid and Vaccine into Muscle, Percutaneous Approach (ICD-10-PCS; 2019-05-21)
PROC: 30233N1 Transfusion of Nonautologous Red Blood Cells into Peripheral Vein, Percutaneous Approach (ICD-10-PCS; 2019-05-21)
DX: O77.0 Labor and delivery complicated by meconium in amniotic fluid (principal); Z3A.39 39 weeks gestation of pregnancy; O72.0 Third-stage hemorrhage; O99.344 Other mental disorders complicating childbirth; F99 Mental disorder, not otherwise specified; O99.62 Diseases of the digestive system complicating childbirth; O99.824 Streptococcus B carrier state complicating childbirth; K21.9 Gastro-esophageal reflux disease without esophagitis; Z37.0 Single live birth; Z23 Encounter for immunization; O76 Abnormality in fetal heart rate and rhythm complicating labor and delivery; O69.1XX0 Labor and delivery complicated by cord around neck, with compression, not applicable or unspecified; O71.89 Other specified obstetric trauma; Z83.3 Family history of diabetes mellitus; Z82.49 Family history of ischemic heart disease and other diseases of the circulatory system; Z91.012 Allergy to eggs; Z91.011 Allergy to milk products; Z91.010 Allergy to peanuts; Z91.013 Allergy to seafood; Z91.018 Allergy to other foods; O99.354 Diseases of the nervous system complicating childbirth; O90.81 Anemia of the puerperium; G47.30 Sleep apnea, unspecified
CPT/HCPCS: 36415; 76998; 81001; 82565; 83615; 84450; 84460; 84550; 85014; 85018; 85027; 86592; 86850; 86900; 86901; 86920; 87806; 88307; 90715; G0378; C9113; J0290; J1885; J2210; J2405; J2590; J2704; J3010; J3490; J7040; J7120; P9016; Q0169

== ENCOUNTER 2021-10-21 16:49 | Inpatient (IN) | payer MEDICAID ==
[2021-10-21] MEDS ORDERED: KETOROLAC 30 MG/1 ML INJ IV ONE (18:01)
[2021-10-21] MEDS ORDERED: OXYTOCIN DRIP 30,000 MILLIUNITS/500 ML BAG IV ONE (18:59)
[2021-10-21 19:41] LABS: Hematocrit 36.9 % (30.3-42.9); Hemoglobin 11.7 gm/dl (10.1-14.3); Mean Corpuscular HGB Conc 32 % (30-34); Mean Corpuscular Volume 89 fl (79-97); Platelet Count 229 K/mm3 (140-440); Red Blood Count 4.14 M/mm3 (3.65-5.03); Red Cell Distribution Width 14.7 % (13.2-15.2)
[2021-10-21 20:06] LABS: Hepatitis C Virus Antibody Non-Reactive (NonReactive)
[2021-10-21 21:25] LABS: Band Neutrophils # (Manual) 0.1 K/mm3; Basophils % (Manual) 0 % (0.0-1.8); Eosinophils % (Manual) 0 % (0.0-4.3); Platelet Estimate Consistent w Auto; RBC Morphology Normal; Total Cells Counted 100
[2021-10-22] MEDS: IBUPROFEN 800 MG TAB PO PRN ×2 (02:32→23:50)
[2021-10-22 05:31] LABS: Calcium Oxalate Crystals,Urine 1+; Mucus,Urine 1+ /HPF
[2021-10-22 05:33] LABS: Amphetamine Screen,Urine Negative; Benzodiazepines Screen,Urine Negative; Cocaine Screen,Urine Negative; Methadone Screen,Urine Negative; Opiate Screen,Urine Negative
[2021-10-22 05:34] LABS: Bilirubin,Urine Negative (Negative); Blood,Urine Large (Negative); Color,Urine Yellow (Yellow); PH,Urine 6.5 (5.0-7.0); Urobilinogen,Urine < 2.0 mg/dL (<2.0)
[2021-10-22 05:41] LABS: Hematocrit 31.3 % (30.3-42.9); Hemoglobin 10.4 gm/dl (10.1-14.3)
[2021-10-22 06:11] LABS: Cannabinoid Screen,Urine Positive
[2021-10-22] MEDS ORDERED: PROMETHAZINE 25 MG RECT SUPP PR PRN (08:04)
[2021-10-22] MEDS ORDERED: WITCH HAZEL/ GLYCERIN PAD TP PRN (08:04)
[2021-10-22] MEDS ORDERED: ACETAMINOPHEN 325 MG TAB PO PRN (08:04)
[2021-10-22] MEDS ORDERED: ONDANSETRON 4 MG/2 ML INJ IV PRN (08:04)
[2021-10-22] MEDS ORDERED: MAGNESIUM HYDROXIDE (MOM) ORAL LIQD UDC PO PRN (08:04)
[2021-10-22] MEDS ORDERED: diphenhydrAMINE 25 MG CAP PO PRN (08:04)
[2021-10-22] MEDS ORDERED: PROMETHAZINE 25 MG TAB PO PRN (08:04)
[2021-10-22] MEDS ORDERED: oxyCODONE /ACETAMINOPHEN 5-325MG TAB PO PRN (08:04)
[2021-10-22] MEDS ORDERED: LANOLIN/ZINC/DIMETHICONE (LANSINOH) 7 GM TP PRN (08:04)
[2021-10-22] MEDS: oxyCODONE /ACETAMINOPHEN 5-325MG TAB PO PRN ×2 (09:04→17:25)
--- NOTE | 2021-10-22 10:08 | History and Physical Report ---
History of Present Illness Date of examination: 10/22/21 Date of admission: 10/21/21 16:49 Chief complaint: Delivery at home History of present illness: 31-year-old -0-0-4 at 38+3 weeks who presents after delivering spontaneously at home. The patient had a liveborn male infant. She reports that the placenta also delivered spontaneously. The patient reports not having care during this . She states having a history of genital herpes. Her GBS status is unknown. 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 Social history: single - Obstetrical History Expected Date of Delivery: 11/02/21 Actual Gestation: 38 Week(s) 3 Day(s) : 5 Para: 4 Hx # Term Pregnancies: 4 Number of Pregnancies: 0 Spontaneous Abortions: 0 Induced : 4 Medications and Allergies Allergies Allergy/AdvReac Type Severity Reaction Status Date / Time banana [Banana] AdvReac Hives Verified 09/19/16 03:55 celery [Celery] AdvReac Hives Verified 09/19/16 03:55 cocoa [[employer]] AdvReac Hives Verified 09/19/16 03:55 egg yolk [Egg Yolk] AdvReac Hives Verified 09/19/16 03:55 milk AdvReac Hives Verified 09/19/16 03:55 peanut AdvReac Hives Verified 09/19/16 03:55 shellfish derived AdvReac Hives Verified 09/19/16 03:55 strawberry [[place]] AdvReac Hives Verified 09/19/16 03:55 tomato [Tomato] AdvReac Hives Verified 09/19/16 03:55 MELON AdvReac Hives Uncoded 02/27/13 03:42 OATS AdvReac Hives Uncoded 02/27/13 03:42 ORANGES AdvReac Hives Uncoded 02/27/13 03:42 PECANS AdvReac Hives Uncoded 02/27/13 03:42 Home Medications Medication Instructions Recorded Confirmed Last Taken Type Tablet 1 tab PO DAILY 10/21/21 10/21/21 10/20/21 History Active Meds: Active Medications Acetaminophen (Acetaminophen 325 Mg Tab) 650 mg PO Q4H PRN PRN Reason: Pain MILD(1-3)/Fever >100.5/STONE Bisacodyl (Bisacodyl 10 Mg Rect Supp) 10 mg NM BID PRN PRN Reason: Constipation Diphenhydramine HCl (Diphenhydramine 25 Mg Cap) 25 mg PO Q6H PRN PRN Reason: Itching Ibuprofen (Ibuprofen 800 Mg Tab) 800 mg PO Q8H PRN PRN Reason: Pain, Mild (1-3) Last Admin: 10/22/21 02:32 Dose: 800 mg Magnesium Hydroxide (Magnesium Hydroxide (Mom) Oral Liqd Udc) 30 ml PO HS PRN PRN Reason: Constipation Multi-Ingredient Ointment (Lanolin/Zinc/Dimethicone (Lansinoh) 7 Gm) 1 applic TP PRN PRN PRN Reason: Sore Nipples Ondansetron HCl (Ondansetron 4 Mg/2 Ml Inj) 4 mg IV Q8H PRN PRN Reason: Nausea And Vomiting Oxycodone/Acetaminophen (Oxycodone /Acetaminophen 5-325mg Tab) 1 tab PO Q6H PRN PRN Reason: Pain, Moderate (4-6) Last Admin: 10/22/21 09:04 Dose: 1 tab Promethazine HCl (Promethazine 25 Mg Rect Supp) 25 mg NM Q6H PRN PRN Reason: Nausea And Vomiting Promethazine HCl (Promethazine 25 Mg Tab) 25 mg PO Q6H PRN PRN Reason: Nausea And Vomiting Sodium Chloride (Sodium Chloride 0.9% 10 Ml Flush Syringe) 10 ml IV PRN NR Stop: 11/02/21 23:59 Witch Erika/Glycerin (Witch Erika/ Glycerin Pad) 1 each TP PRN PRN PRN Reason: Hemorrhoid/cleansing/soothing Review of Systems All systems: negative - Vital Signs Vital signs: Vital Signs Temp Pulse Resp BP Pulse Ox 98.8 F 74 20 131/75 99 10/21/21 17:21 10/21/21 17:21 10/21/21 17:21 10/21/21 17:21 10/21/21 17:21 Temp Pulse Resp BP Pulse Ox 98.1 F 77 16 126/76 100 10/22/21 09:01 10/22/21 09:01 10/22/21 09:04 10/22/21 09:01 10/22/21 09:01 - Physical Exam Breasts: Positive: deferred Cardiovascular: Regular rate Lungs: Positive: Clear to auscultation Results Result Diagrams: 10/22/21 04:43 Abnormal lab results 10/21/21 10/21/21 Range/Units 19:25 Unknown WBC 12.3 H (4.5-11.0) K/mm3 Seg Neuts % (Manual) 85.0 H (40.0-70.0) % Lymphocytes % (Manual) 11.0 L (13.4-35.0) % Seg Neutrophils # Man 10.5 H (1.8-7.7) K/mm3 Urine Blood Large A (Negative) All other labs normal. Assessment and Plan - Patient Problems (1) Insufficient care Current Visit: Yes Status: Acute Plan to address problem: Routine care (2) Active labor at term Current Visit: No Status: Acute
--- NOTE | 2021-10-22 10:09 | Procedure Note ---
OB Delivery Note - Delivery Date of Delivery: 10/22/21 Surgeon: BHARGAVI WOOD - Vaginal Delivery presentation: vertex Delivery position: OA Intrapartum events: no care Route of delivery: Delivery placenta: spontaneous Delivery cord: 3 umbilical vessels Episiotomy: none Delivery laceration: none Delivery comments: The patient had a spontaneous vaginal delivery of a liveborn male infant weight 3720 g. She also had a spontaneous delivery of the placenta which was intact. No lacerations were noted. - A Gender: Male (Weight 3720 g)
--- NOTE | 2021-10-22 10:29 | Discharge Summary ---
Providers - Providers Date of Admission: 10/21/21 16:49 Date of discharge: 10/23/21 Attending physician: BHARGAVI WOOD Primary care physician: BHARGAVI WOOD Hospitalization Reason for admission: active labor Delivery: Discharge diagnosis: IUP at term delivered Hospital course: The patient presents with no care during this . She had a spontaneous vaginal delivery at home. Her course was uneventful. Condition at discharge: Good Disposition: 01 HOME / SELF CARE / HOMELESS - Discharge Diagnoses (1) Insufficient care Status: Acute (2) Active labor at term Status: Acute Plan - Discharge Medications Prescriptions: Ibuprofen [Motrin] 800 mg PO Q8HR PRN #30 tablet PRN Reason: Pain , Severe (7-10) - Provider Discharge Summary Activity: no sex for 6 weeks, no heavy lifting 4 weeks, no strenuous exercise Diet: routine Instructions: routine Additional instructions: [] Smoking cessation referral if applicable(refer to patient education folder for contact #) [] Refer to [facility] Booklet Call your doctor immediately for: * Fever > 100.5 * Heavy vaginal bleeding ( >1 pad per hour) * Severe persistent headache * Shortness of breath * Reddened, hot, painful area to leg or breast * Schedule visit in 4 weeks - Follow up plan
[2021-10-23] MEDS: oxyCODONE /ACETAMINOPHEN 5-325MG TAB PO PRN (06:20)
[2021-10-23] MEDS ORDERED: TETANUS,DIPH,PERTUSS(ACELL) VACCINE 0.5 ML SYRINGE IM ONE (08:00)
[2021-10-23] MEDS: IBUPROFEN 800 MG TAB PO PRN (12:13)
[2021-10-23 16:09] VITALS: BP 126/75
== END 2021-10-23 16:50 | disposition home or self-care (01) | DRG 776 ==
LOC: LD 16:49 → OB 22:28
PROVIDERS: ADMIT Obstetrics & Gynecology; ATTEND Obstetrics & Gynecology
PROC: 3E0234Z Introduction of Serum, Toxoid and Vaccine into Muscle, Percutaneous Approach (ICD-10-PCS; principal; 2021-10-23)
DX: Z39.0 Encounter for care and examination of mother immediately after delivery (principal); Z23 Encounter for immunization; Z91.012 Allergy to eggs; Z91.011 Allergy to milk products; Z91.010 Allergy to peanuts; Z91.013 Allergy to seafood; Z91.018 Allergy to other foods
CPT/HCPCS: 36415; 80307; 81001; 85007; 85014; 85018; 85025; 86592; 86706; 86762; 86803; 86850; 86900; 86901; 87806; 90471; 90715; G0378; J1885